=== PATIENT | male | born 1990 | race Hispanic/Latino ===

== ENCOUNTER 2017-12-30 21:22 | Emergency (ER) | payer OTHER ==
[~2017-12-30] VITALS: Ht 170.2 cm; Wt 120.4 kg
[2017-12-30 21:25] VITALS: BP 127/93
[2017-12-31] MEDS ORDERED: MOTRIN600 MG PO (00:06)
== END 2017-12-31 00:25 | disposition home or self-care (01) ==
LOC: EME 21:22
DX: M71.22 Synovial cyst of popliteal space [Baker], left knee (principal); S83.92XA Sprain of unspecified site of left knee, initial encounter; M79.662 Pain in left lower leg; F17.200 Nicotine dependence, unspecified, uncomplicated
CPT/HCPCS: 73564; 93971; 99281; 99283